=== PATIENT | female | born 1985 | race African-American/Black ===

== ENCOUNTER 2016-12-17 09:20 | Emergency (ER) | payer OTHER ==
[2016-12-17 09:34] VITALS: BMI 28.3
[2016-12-17] MEDS ORDERED: ONDANSETRON 4 MG/2 ML VIAL IVPUSH ONE (10:26)
[2016-12-17] MEDS ORDERED: HYOSCYAMINE SULFATE 0.125 MG *ODT PO ONE (10:26)
[2016-12-17] MEDS ORDERED: MAG HYDROX/AL HYDROX/SIMETH 30 ML UNIT-DOSE CUP PO ONE (10:26)
[2016-12-17] MEDS ORDERED: PANTOPRAZOLE SODIUM 40 MG in SODIUM CHLORIDE 100 ML IVPB ONE (10:26)
[2016-12-17] MEDS ORDERED: SODIUM CHLORIDE 1,000 ML IV STA (10:26)
[2016-12-17] MEDS ORDERED: LIDOCAINE VISCOUS 2% ORAL/TOP 20 ML UNIT-DOSE CUP MM ONE (10:26)
[2016-12-17] MEDS ORDERED: MAG HYDROX/AL HYDROX/SIMETH 30 ML UNIT-DOSE CUP ONE (10:33)
[2016-12-17] MEDS ORDERED: PANTOPRAZOLE SODIUM 100 ML IVPB ONE (10:33)
[2016-12-17] MEDS ORDERED: ONDANSETRON 4 MG/2 ML VIAL ONE (10:33)
--- NOTE | 2016-12-17 10:59 | PDOC ---
History of Present Illness - General Chief Complaint: Chest Pain Stated Complaint: CHEST PAIN Time Seen by Provider: 12/17/16 09:42 History Source: Patient - History of Present Illness Initial Comments: 12/17/16 10:42 31-year-old female presents to the ED with complaints of nausea and vomiting for the past 3 days now associated with tightness to her midsternal region. Patient states went to a hospital in [place] a few days ago was given Reglan and Zofran but states although it did alleviate her symptoms of vomiting moderately , since now she started to develop tightness to her chest and decided come to the ER. She denies fever, chills, palpitations, dizziness, dysuria, back pain, rash, or lower extremity edema. patient states has not been able to tolerate solids but has been tolerating fluids intermittently. Severity: moderate Associated Symptoms: reports: nausea/vomiting Past History - Past Medical History Allergies/Adverse Reactions: Allergies Allergy/AdvReac Type Severity Reaction Status Date / Time No Known Allergies Allergy Verified 12/17/16 09:34 Home Medications: Ambulatory Orders Metoclopramide HCl [Reglan] 10 mg PO Q6H 12/17/16 Ondansetron [Zofran -] 4 mg PO Q8H 12/17/16 Other medical history: PATIENT DENIES MEDICAL HISTORY - Reproductive History LMP Normal: Yes Is Patient Now?: No - Immunization History Td Vaccination: No Immunization Up to Date: Yes - Psycho/Social/Smoking Cessation Hx Anxiety: No Suicidal Ideation: No Smoking Status: No Smoking History: Never smoked Have you smoked in the past 12 months: No Number of Cigarettes Smoked Daily: 0 Information on smoking cessation initiated: No Hx Alcohol Use: Yes (OCCASIONALLY) Drug/Substance Use Hx: No Substance Use Type: None Patient Lives Alone: No Review of Systems - Review of Systems Able to Perform ROS?: Yes Constitutional: Yes: Loss of Appetite, Weakness (mild) Respiratory: No: Symptoms reported Cardiac (ROS): Yes: Other ABD/GI: Yes: Nausea, Poor Appetite, Vomiting, Abdominal cramping (epigastric). No: Diarrhea, Poor Fluid Intake Musculoskeletal: No: Back Pain Integumentary: No: Symptoms Reported Neurological: No: Headache, Dizziness Hematologic/Lymphatic: No: Symptoms Reported *Physical Exam - Vital Signs Last Vital Signs Temp Pulse Resp BP Pulse Ox 98.1 F 72 20 134/56 100 04/18/17 09:30 12/17/16 09:30 12/17/16 09:30 12/17/16 09:30 12/17/16 09:30 - Physical Exam General Appearance: Yes: Nourished, Appropriately Dressed. No: Apparent Distress HEENT: positive: EOMI, ADRIANA, Pharynx Normal. negative: Pale Conjunctivae Neck: positive: Normal Thyroid, Supple Respiratory/Chest: positive: Lungs Clear, Normal Breath Sounds. negative: Chest Tender, Respiratory Distress, Accessory Muscle Use Cardiovascular: positive: Regular Rhythm, Regular Rate. negative: Murmur Gastrointestinal/Abdominal: positive: Soft, Tenderness (epigastric) Musculoskeletal: negative: CVA Tenderness Extremity: negative: Pedal Edema Integumentary: positive: Normal Color, Warm, Moist Neurologic: positive: Motor Strength 5/5 (ambulatory) Heart Score/ECG Review - History History: Slightly suspicious - Electrocardiogram EKG: Normal - Age Age: </= 45 - Risk Factors Based on the list above the patient has:: No risk factors known - Troponin Troponin: </= normal limit - Score Heart Score - Total: 0 - ECG Intrepretation Rhythm: Regular Rhythm Comment:: 12/17/16 11:03 rate 65. normal sinus rhythm. QTC 413 ms ED Treatment Course - LABORATORY CBC & Chemistry Diagram: 12/17/16 11:13 12/17/16 11:13 Medical Decision Making - Medical Decision Making 12/17/16 11:04 Patient complains of intermittent nausea and vomiting which was mildly reduced with Zofran and Reglan but states now developed midsternal chest tightness without radiation to her left or right side. Patient also denies shortness of breath, palpitations, dizziness, or fever. Patient states 3 days ago was diagnosed gastroenteritis and was discharged from a [facility]. Patient states poor solid intake and moderate occult intake patient ordered for labs including magnesium, CBC, comp, EKG, cardiac profile, Zofran, Protonix, IV fluids and a GI cocktail. 12/17/16 13:15 Laboratory Tests 12/17/16 12/17/16 12/17/16 11:13 11:13 11:25 WBC 12.3 H D Hgb 12.5 D Hct 39.6 D MCV 73.5 L Plt Count 280 D Sodium 140 Potassium 3.6 Chloride 106 Carbon Dioxide 26 Anion Gap 8 BUN 8 Creatinine 0.8 D Creat Clearance w eGFR > 60 Random Glucose 90 Calcium 9.2 Magnesium 1.8 AST 20 D ALT 32 D Troponin I < 0.02 Lipase Urine Ketones 1+ H Urine Blood 1+ H Urine Urobilinogen 2.0 e.u/dl H Urine RBC 2 Urine WBC 1 Urine HCG, Qual Negative 12/17/16 11:48 WBC Hgb Hct MCV Plt Count Sodium Potassium Chloride Carbon Dioxide Anion Gap BUN Creatinine Creat Clearance w eGFR Random Glucose Calcium Magnesium AST ALT Troponin I Lipase 152 Urine Ketones Urine Blood Urine Urobilinogen Urine RBC Urine WBC Urine HCG, Qual Patient states feeling better after receiving the above medication. Patient be discharged home and told to follow up with referred to GI as this may be related to a combination of acid reflux versus gastritis since patient does complain of epigastric pain worsened after meals. *DC/Admit/Observation/Transfer Diagnosis at time of Disposition: Gastritis Qualifiers: Gastritis type: unspecified gastritis Chronicity: acute Gastritis bleeding: without bleeding Qualified Code(s): K29.00 - Acute gastritis without bleeding - Discharge Dispostion Disposition: HOME Condition at time of disposition: Improved - Referrals Referrals: Edward Sinclair MD [Staff Physician] - - Patient Instructions Printed Discharge Instructions: DI for Gastroesophageal Reflux Disease (GERD) Additional Instructions: Please take medication as needed for the nausea but please continue with the Protonix as prescribed until you follow up with GI as discussed. Avoid spicy greasy food and sit upright for at least a half hour after meals. Drink plenty of fluids and avoid caffeinated beverages as this may aggravate your symptoms.
[2016-12-17 11:55] LABS: ALBUMIN 4.1 g/dl (3.4-5.0); ANION GAP 8 (8-16); BILIRUBIN,TOTAL 0.9 mg/dL (0.2-1.0); CALCIUM 9.2 mg/dL (8.5-10.1); CO2 26 mmol/L (21-32); CREATININE 0.8 mg/dL (0.55-1.02); GLUCOSE,RANDOM 90 mg/dL (74-106); MAGNESIUM 1.8 mg/dL (1.8-2.4); SGOT/AST 20 U/L (15-37); SGPT/ALT 32 U/L (12-78)
[2016-12-17 11:58] LABS: ALK PHOS 64 U/L (45-117); TROPONIN I < 0.02 ng/ml (0.00-0.05)
[2016-12-17] MEDS ORDERED: morphine CARPU-JECT 4 MG/1 ML DISP.SYRIN IVPUSH ONE (12:02)
[2016-12-17] MEDS ORDERED: morphine CARPU-JECT 4 MG/1 ML DISP.SYRIN ONE (12:06)
[2016-12-17 12:14] LABS: URINE APPEARANCE SLCLOUDY; URINE BILIRUBIN NEGATIVE (NEGATIVE); URINE COLOR LTYELLOW; URINE GLUCOSE (UA) NEGATIVE (NEGATIVE); URINE KETONE 1+ (NEGATIVE); URINE LEUK ESTERASE NEGATIVE (NEGATIVE); URINE NITRITE NEGATIVE (NEGATIVE); URINE PROTEIN NEGATIVE (NEGATIVE); URINE UROBILINOGEN 2.0 E.U/dl E.U./dl (0.2-1.0)
[2016-12-17 12:19] LABS: URINE BLOOD 1+ (NEGATIVE)
[2016-12-17 12:24] LABS: BASOPHIL 0.4 % (0-2.0); MCH 23.3 pg (25.7-33.7); MCHC 31.7 g/dl (32.0-36.0); MEAN CELL VOLUME 73.5 fl (80-96); MEAN PLT VOLUME 9.3 fl (7.5-11.1); NEUTROPHILS 68.3 % (42.8-82.8); PLATELET COUNT 280 K/MM3 (134-434); RDW 15.1 % (11.6-15.6); WHITE BLOOD COUNT 12.3 K/mm3 (4.0-10.0)
[2016-12-17 12:35] LABS: URINE MUCUS MANY; URINE RBC 2 /hpf (0-3); URINE WBC 1 /hpf (3-5)
--- NOTE | 2016-12-17 12:38 | EKG ---
Test Reason : Blood Pressure : / mmHG Vent. Rate : 065 BPM Atrial Rate : 065 BPM P-R Int : 140 ms QRS Dur : 078 ms QT Int : 398 ms P-R-T Axes : 026 008 -71 degrees QTc Int : 413 ms NORMAL SINUS RHYTHM WITH SINUS ARRHYTHMIA T WAVE ABNORMALITY, CONSIDER ANTERIOR ISCHEMIA ABNORMAL ECG NO PREVIOUS ECGS AVAILABLE CLINICAL CORRELATION IS RECOMMENDED Confirmed by TRACIE LR MD ([id number]) on 12/17/2016 12:37:45 PM Referred By: Confirmed By:TRACIE LR MD
[2016-12-17 13:56] VITALS: BP 127/67; PULSE 62; TEMP 99
== END 2016-12-17 13:56 | disposition home or self-care (01) ==
LOC: JER 09:20
PROC: 3E033NZ Introduction of Analgesics, Hypnotics, Sedatives into Peripheral Vein, Percutaneous Approach (ICD-10-PCS; principal; 2016-12-17)
PROC: 3E033GC Introduction of Other Therapeutic Substance into Peripheral Vein, Percutaneous Approach (ICD-10-PCS; 2016-12-17)
PROC: 3E0337Z Introduction of Electrolytic and Water Balance Substance into Peripheral Vein, Percutaneous Approach (ICD-10-PCS; 2016-12-17)
DX: K29.00 Acute gastritis without bleeding (principal)
CPT/HCPCS: 36415; 80053; 81003; 81015; 82550; 83690; 83735; 84484; 84703; 85025; 93005; 93010; 96361; 96365; 96375; 99285-25

== ENCOUNTER 2018-07-05 15:05 | Emergency (ER) | payer SELFPAY ==
[2018-07-05] MEDS ORDERED: NAPROXEN 375 MG TABLET (FP) PO ONE (15:37)
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
[2018-07-05] MEDS ORDERED: NAPROXEN 375 MG TABLET (FP) ONE (15:38)
[2018-07-05 15:46] VITALS: BP 128/86; PULSE 90; TEMP 98; BMI 31.2
== END 2018-07-05 15:43 | disposition home or self-care (01) ==
LOC: FER 15:05
DX: S05.12XA Contusion of eyeball and orbital tissues, left eye, initial encounter (principal); Y04.2XXA Assault by strike against or bumped into by another person, initial encounter; Y93.9 Activity, unspecified; Y92.9 Unspecified place or not applicable
CPT/HCPCS: 99283-25

== ENCOUNTER 2018-07-31 22:36 | Emergency (ER) | payer OTHER ==
[2018-07-31 22:43] VITALS: BP 135/83; PULSE 92; TEMP 98.7; BMI 30.2
[2018-07-31] MEDS ORDERED: KETOROLAC TROMETHAMINE 30 MG/1 ML VIAL IM ONE (23:44)
[2018-08-01] MEDS ORDERED: KETOROLAC TROMETHAMINE 30 MG/1 ML VIAL ONE (00:02)
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
== END 2018-08-01 01:01 | disposition home or self-care (01) ==
LOC: JER 22:36
DX: S09.8XXA Other specified injuries of head, initial encounter (principal); Y04.2XXA Assault by strike against or bumped into by another person, initial encounter; Y93.89 Activity, other specified; Y92.038 Other place in apartment as the place of occurrence of the external cause; Y99.8 Other external cause status; Y07.499 Other family member, perpetrator of maltreatment and neglect
CPT/HCPCS: 99283-25

== ENCOUNTER 2018-09-14 15:12 | Emergency (ER) | payer OTHER ==
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
[2018-09-14 15:26] VITALS: BP 113/95; PULSE 101; TEMP 98.2; BMI 30.2
[2018-09-14] MEDS ORDERED: KETOROLAC TROMETHAMINE 60 MG/2 ML VIAL IM ONE (17:18)
[2018-09-14] MEDS ORDERED: KETOROLAC TROMETHAMINE 60 MG/2 ML VIAL ONE (17:22)
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
== END 2018-09-14 17:40 | disposition home or self-care (01) ==
LOC: JERFT 15:12
PROC: 3E0233Z Introduction of Anti-inflammatory into Muscle, Percutaneous Approach (ICD-10-PCS; principal; 2018-09-14)
DX: S16.1XXA Strain of muscle, fascia and tendon at neck level, initial encounter (principal); S39.012A Strain of muscle, fascia and tendon of lower back, initial encounter; V49.49XA Driver injured in collision with other motor vehicles in traffic accident, initial encounter; Y92.414 Local residential or business street as the place of occurrence of the external cause; Y93.89 Activity, other specified; Y99.8 Other external cause status
CPT/HCPCS: 72050-TC-FY; 72100-TC-FY; 84703; 99281-25

== ENCOUNTER 2018-12-10 09:54 | Emergency (ER) | payer OTHER ==
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
[2018-12-10 10:04] VITALS: BP 141/89; PULSE 81; TEMP 97.9; BMI 30.2
[2018-12-10] MEDS ORDERED: ACETAMINOPHEN 325 MG TABLET (FP) PO ONE (10:18)
[2018-12-10] MEDS ORDERED: KETOROLAC TROMETHAMINE 30 MG/1 ML VIAL IM ONE (10:21)
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
[2018-12-10] MEDS ORDERED: METOCLOPRAMIDE HCL 10 MG TABLET (FP) PO ONE ×2 (10:30→10:45)
[2018-12-10] MEDS ORDERED: KETOROLAC TROMETHAMINE 30 MG/1 ML VIAL ONE (10:45)
[2018-12-10] MEDS ORDERED: ACETAMINOPHEN 325 MG TABLET (FP) ONE (10:45)
== END 2018-12-10 11:46 | disposition home or self-care (01) ==
LOC: JER 09:54
PROC: 3E0233Z Introduction of Anti-inflammatory into Muscle, Percutaneous Approach (ICD-10-PCS; principal; 2018-12-10)
DX: R11.0 Nausea (principal); S09.90XA Unspecified injury of head, initial encounter; Y04.2XXA Assault by strike against or bumped into by another person, initial encounter; Y93.89 Activity, other specified; Y92.129 Unspecified place in nursing home as the place of occurrence of the external cause; Y99.0 Civilian activity done for income or pay; G89.29 Other chronic pain
CPT/HCPCS: 84703; 99281-25

== ENCOUNTER 2021-07-15 17:26 | Emergency (ER) | payer SELFPAY ==
[2021-07-15] MEDS ORDERED: ACETAMINOPHEN 1000 MG/100 ML VIAL IVPB ONE (17:36)
[2021-07-15] MEDS ORDERED: FAMOTIDINE 20 MG/50 ML IVPB 20 MG/50 ML MG IVPB ONE ×2 (17:36→18:02)
[2021-07-15] MEDS ORDERED: ONDANSETRON 4 MG/2 ML VIAL IVPUSH ONE ×2 (17:36→18:44)
[2021-07-15] MEDS ORDERED: SODIUM CHLORIDE 1,000 ML IV STA (17:36)
[2021-07-15 17:43] VITALS: BP 136/72; PULSE 64; TEMP 98.3; BMI 32.3
[2021-07-15] MEDS ORDERED: ACETAMINOPHEN INJECTION 100 ML IVPB ONE (18:02)
[2021-07-15] MEDS ORDERED: ONDANSETRON 4 MG/2 ML VIAL ONE (18:03)
[2021-07-15 18:17] LABS: BASO % 3.2 % (0-2.0); HEMATOCRIT 38.5 % (32.4-45.2); MCH 23.6 pg (25.7-33.7); MCHC 31.1 g/dl (32.0-36.0); MEAN CELL VOLUME 75.9 fl (80-96); MEAN PLT VOLUME 8.5 fl (7.5-11.1); MONO % 1.7 % (3.8-10.2); NEUT % 88.1 % (42.8-82.8); PLATELET COUNT 312 10^3/uL (134-434); RBC 5.08 M/mm3 (3.60-5.2); RDW 14.4 % (11.6-15.6)
[2021-07-15 18:21] LABS: ALBUMIN 4.2 g/dl (3.4-5.0); BILIRUBIN,TOTAL 0.9 mg/dl (0.2-1); CALCIUM 9.6 mg/dl (8.5-10); CREATININE 0.8 mg/dl (0.55-1.3)
[2021-07-15 18:36] LABS: HCG,QUALITATIVE URINE Negative
[2021-07-15 18:51] LABS: EPITHELIAL CELLS MODERATE /hpf
[2021-07-15] MEDS ORDERED: AMPICILLIN NA/SULBACTAM NA 1.5 GM in SODIUM CHLORIDE 100 ML IVPB ONE (19:36)
[2021-07-15] MEDS ORDERED: METOCLOPRAMIDE HCL INJECTION 10 MG/2 ML VIAL IVPB ONE (19:38)
[2021-07-15] MEDS ORDERED: METOCLOPRAMIDE HCL INJECTION 10 MG/2 ML VIAL ONE (19:43)
[2021-07-15] MEDS ORDERED: AMPICILLIN NA/SULBACTAM NA 1.5 GM VIAL ONE (19:43)
[2021-07-15] MEDS ORDERED: LACTATED RINGERS SOLUTION 1,000 ML/1,000 ML INFUS.BAG IV SCH (19:45)
== END 2021-07-15 21:22 | disposition home or self-care (01) ==
LOC: FER 17:26
PROC: 3E033NZ Introduction of Analgesics, Hypnotics, Sedatives into Peripheral Vein, Percutaneous Approach (ICD-10-PCS; principal; 2021-07-15)
PROC: 3E033GC Introduction of Other Therapeutic Substance into Peripheral Vein, Percutaneous Approach (ICD-10-PCS; 2021-07-15)
PROC: 3E033GC Introduction of Other Therapeutic Substance into Peripheral Vein, Percutaneous Approach (ICD-10-PCS; 2021-07-15)
PROC: 3E0337Z Introduction of Electrolytic and Water Balance Substance into Peripheral Vein, Percutaneous Approach (ICD-10-PCS; 2021-07-15)
PROC: 3E033GC Introduction of Other Therapeutic Substance into Peripheral Vein, Percutaneous Approach (ICD-10-PCS; 2021-07-15)
PROC: 3E033GC Introduction of Other Therapeutic Substance into Peripheral Vein, Percutaneous Approach (ICD-10-PCS; 2021-07-15)
DX: R11.2 Nausea with vomiting, unspecified (principal); R19.7 Diarrhea, unspecified; A05.9 Bacterial foodborne intoxication, unspecified
CPT/HCPCS: 36415; 80053; 81003; 81015; 84703; 85025; 99285-25; J0131

== ENCOUNTER 2021-09-17 03:47 | Emergency (ER) | payer OTHER ==
[2021-09-17 04:01] VITALS: BP 142/90; PULSE 79; TEMP 98.1; BMI 29.2
[2021-09-17] MEDS ORDERED: ACETAMINOPHEN 500 MG TABLET (FP) PO ONE (04:26)
[2021-09-17] MEDS ORDERED: ACETAMINOPHEN 325 MG TABLET (FP) ONE (04:41)
== END 2021-09-17 06:29 | disposition home or self-care (01) ==
LOC: JER 03:47
DX: S09.92XA Unspecified injury of nose, initial encounter (principal); H11.31 Conjunctival hemorrhage, right eye; S09.93XA Unspecified injury of face, initial encounter; Y07.03 Male partner, perpetrator of maltreatment and neglect
CPT/HCPCS: 99283-25